=== PATIENT | male | born 1960 | race Caucasian/White ===

== ENCOUNTER → 2017-05-04 | Outpatient (CLI) | payer OTHER ==
--- NOTE | 2017-05-04 11:50 | PN ---
PROGRESS NOTE A 57-year-old male patient coming in for an annual followup regarding his obstructive sleep apnea. The patient has been diagnosed having severe JALIL with an AHI of 59 and the patient is currently on BiPAP at a pressure of 14/10 cm of water. He is doing well. He has gained only 4 pounds over the past 1 year. He is still using his BiPAP. He is benefitting from the treatment. He is waking up alert and refreshed. He needs to be a little bit more compliant. His 30-day complaint. His 30-day compliancy shows that he has used his BiPAP 26/30 days and his average BiPAP use was 6.1 hours per night. Leak factor is only 72 per minute, and he is using an Vibha View full-face mask. Tidal volumes of 580, AHI while on treatment is down to 3. He has no snoring while on the BiPAP treatment. No facial irritation. No headaches. No other complaints, otherwise. His sleep quality is improved. Also, the patient is being investigated at [facility] for a left inguinal hernia and he may ultimately need surgery for that. BP is 141/78, pulse 84, respirations 16, temperature 98.2, saturation 96% on room air. Weight is 298. Height is 5, 7, BMI is 46.6. General appearance is calm, comfortable, in no acute distress. HEAD: Atraumatic, normocephalic. NECK: Supple. There is no JVD. There is no goiter or neck masses. LUNGS: Diminished breath sounds; otherwise clear. HEART: Sounds are regular rate and rhythm. Normal S1, S2. No S3. No murmurs. ABDOMEN: Soft, nontender. No organomegaly. No direct tenderness, rebound or guarding. EXTREMITIES: No edema. No cyanosis or clubbing. IMPRESSION: 1. Symptomatic severe obstructive sleep apnea, apnea-hypopnea index of 59. The patient continues to receive successful BiPAP therapy at a pressure of 14/10. 2. Obesity, body mass index of 46. 3. Hypersomnia, recovered. 4. Inguinal hernia. PLAN: 1. Proceed with BiPAP therapy at the same level of pressure. 2. Renew supplies. 3. Encourage weight loss. 4. The patient is compliant. 5. No need for any further adjustments. See me back in a year's time in followup, earlier if needed. MMODL / IJN: [id number] /
== END | disposition home or self-care (01) ==
LOC: SLEEP 10:10
PROVIDERS: ATTEND Internal Medicine Critical Care Medicine
DX: G47.33 Obstructive sleep apnea (adult) (pediatric) (principal); E66.9 Obesity, unspecified; K40.90 Unilateral inguinal hernia, without obstruction or gangrene, not specified as recurrent; Z99.89 Dependence on other enabling machines and devices; Z68.42 Body mass index [BMI] 45.0-49.9, adult

== ENCOUNTER → 2018-05-31 | Outpatient (CLI) | payer OTHER ==
--- NOTE | 2018-05-31 15:16 | PN ---
PROGRESS NOTE A 58-year-old, male patient who is coming in for an annual check regarding his obstructive sleep apnea. He is doing extremely well. Over the past 1 year, the patient has gained around 16 pounds. Note that he has severe JALIL with an AHI of 59 and has been maintained on BiPAP pressure of 14/10 cm of water. He has been quite compliant with treatment. His compliancy data showed adequate use. The patient has been averaging around 6 hours of BiPAP use per night and his tidal volume is at 550, with an AHI being down to 2.5 while on treatment. His defect is 8 L/per minute, and the patient is using a small size Vibha View full-face mask. His BiPAP use over the past month indicated the patient is very compliant utilizing BiPAP use of more than 4 hours 75% of the time. No snoring while on his treatment. He is waking up refreshed and alert during the day. His current Whitharral score is at 8. PHYSICAL EXAMINATION: BP is 188/87, pulse 74, respirations 16, temperature 98.2, saturation 99% on room air. Height is 5, 7, weight is 314, BMI is 49.1. GENERAL APPEARANCE: Calm, comfortable. head is atraumatic, normocephalic. NECK: Supple. No JVD. No goiter or neck masses. Mallampati class IV. LUNGS: Clear to auscultation. HEART: Sounds regular. Normal S1, S2. No S3. No murmurs. ABDOMEN: Soft, nontender. No organomegaly. EXTREMITIES: No edema. No cyanosis or clubbing. NEUROLOGIC: Alert and oriented x3. No focal neurological deficits. PSYCHIATRIC: A negative for anxiety or depression. IMPRESSION: 1. Severe obstructive sleep apnea with an AHI of 59 currently on a BiPAP with a pressure of 14/10. Treatment continues to be successful despite his underlying weight gain. 2. Obesity with a current body weight is going up to the. Chem 14 with a BMI of 49.1. Despite waking the patient. Treatment continues to be successful. 3. Hypertension was poorly controlled blood pressure. 4. Hypersomnia, improved Whitharral score is down to 8. 5. Inguinal hernia. PLAN: 1. Continue BiPAP therapy at the same level. 2. Encourage weight loss. 3. Renew BiPAP supplies. 4. Treatment is successful. 5. Encourage weight loss. See me back in a year's time in follow up, earlier if needed. MMODL / IJN: [id number] /
== END ==
LOC: SLEEP 13:14
PROVIDERS: ATTEND Internal Medicine Critical Care Medicine
DX: G47.33 Obstructive sleep apnea (adult) (pediatric) (principal); E66.9 Obesity, unspecified; I10 Essential (primary) hypertension; K40.90 Unilateral inguinal hernia, without obstruction or gangrene, not specified as recurrent; Z68.42 Body mass index [BMI] 45.0-49.9, adult; Z99.89 Dependence on other enabling machines and devices

== ENCOUNTER → 2019-06-20 | Outpatient (CLI) | payer OTHER ==
--- NOTE | 2019-06-20 20:44 | PN ---
PROGRESS NOTE This is a 59-year-old male patient coming in for a compliancy check. This is an annual check for this patient. The patient is on a BiPAP pressure of 14/10 cm of water. Since his last evaluation, the patient has maintained his own body weight. His weight is down to 215. He is utilizing his BiPAP every night. His BiPAP use for more than 4 hours is above 70%. His machine use over the past 30 days has been 29/30. Average number of hours is 5 hours per night with a leak of 2 L/minute. Tidal volume is at 540. Apnea-hypopnea index while on treatment is down to 4.2. No snoring while on treatment. No major hypersomnia or sleepiness during the day. Pulse ox 96% on room air. No chest pain, shortness of breath, heartburn overnight. REVIEW OF SYSTEMS: Fourteen-point review of systems was done. Positive findings were all mentioned above in the history of present illness. PHYSICAL EXAMINATION: VITAL SIGNS: BP is 135/70, pulse 73, respirations 16, temperature 97.6, saturation 96% on room air. Leicester score is 9. BMI is 49.3, weight is 215. GENERAL APPEARANCE: Calm, comfortable. HEAD: Atraumatic, normocephalic. NECK: Supple. No JVD. No goiter or neck masses. Mallampati class IV. LUNGS: Clear to auscultation. HEART: Heart sounds are regular rate and rhythm. Normal S1, S2. No S3, S4. No murmurs. ABDOMEN: Soft, nontender. No organomegaly. EXTREMITIES: No edema. No cyanosis or clubbing. NEUROLOGIC: Awake and alert. There is no focal neurological deficit. IMPRESSION: 1. Obstructive sleep apnea, severe, with an apnea/hypopnea index of 59, currently on a BiPAP at a pressure of 14/10. Treatment continues to be successful with adequate compliancy. 2. Obesity with a body mass index of 49.3. Weight is stable. 3. Hypertension. 4. Hypersomnia, improved. PLAN: 1. Continue BiPAP therapy at the same level of pressure. 2. Renew the supplies. 3. Encourage weight loss. 4. Implement good sleep hygiene measures. 5. See me back in a year's time in followup. MMODL / IJN: [id number] /
== END | disposition home or self-care (01) ==
LOC: SLEEP 13:16
PROVIDERS: ATTEND Internal Medicine Critical Care Medicine
DX: G47.33 Obstructive sleep apnea (adult) (pediatric) (principal); E66.9 Obesity, unspecified; Z68.42 Body mass index [BMI] 45.0-49.9, adult; I10 Essential (primary) hypertension; Z99.89 Dependence on other enabling machines and devices

== ENCOUNTER → 2022-01-19 | Outpatient (CLI) | payer OTHER ==
--- NOTE | 2022-01-19 21:30 | MR ---
EXAMINATION TYPE: MR knee RT wo con DATE OF EXAM: 01/19/2022 COMPARISON: Outside right knee x-ray 20 days ago. HISTORY: Right knee pain for 3.5 years. TECHNIQUE: Multiplanar, multisequence imaging of the right knee is performed without IV contrast. FINDINGS: MEDIAL MENISCUS: Marked increased signal throughout the medial meniscus greater involvement in the po sterior horn. No definitive extension to articular surface. LATERAL MENISCUS: Anterior and posterior horns are intact without tear. CRUCIATE LIGAMENTS: The anterior and posterior cruciate ligaments are intact and unremarkable. COLLATERAL LIGAMENTS: The medial collateral ligament and lateral collateral ligament complex are inta ct and unremarkable. EXTENSOR MECHANISM: Visualized quadriceps and patellar tendons are intact. EFFUSION: Small size suprapatellar joint effusion. POPLITEAL CYST: No popliteal/lubin cyst. TRICOMPARTMENT SPACES: Mild to moderate tricompartment joint space loss. Mild tricompartment spurring . CARTILAGE: Some chondromalacia patella with cartilaginous loss along posterior patellar pole sagittal image 18 for reference. Fissuring and cartilaginous loss distal medial femoral condyle. BONE MARROW SIGNAL: Areas of heterogeneous diminished T1 and increased T2 alignment posterior patella r pole at site of cartilaginous loss. OTHER: No additional significant abnormality is appreciated. IMPRESSION: 1. Mild to moderate tricompartment degenerative changes as detailed above. 2. At least intrasubstance tear throughout the anterior and posterior horns of the medial meniscus, n o full-thickness meniscal tear. 3. Small suprapatellar joint effusion.
== END | disposition home or self-care (01) ==
LOC: RADMRIMAIN 18:45
PROVIDERS: ATTEND Orthopaedic Surgery
DX: M17.11 Unilateral primary osteoarthritis, right knee (principal); M23.221 Derangement of posterior horn of medial meniscus due to old tear or injury, right knee

== ENCOUNTER → 2022-03-02 | Outpatient (CLI) | payer OTHER ==
[2022-03-02 15:35] LABS: Basophils # (A) 0.03 X 10*3/uL (0.00-0.10); Basophils % (A) 0.5 %; Eosinophils # (A) 0.17 X 10*3/uL (0.04-0.35); Eosinophils % (A) 2.6 %; HCT 49.4 % (39.6-50.0); HGB 16.3 g/dL (13.0-17.0); Immature Grans, Automated 0.5 %; Lymphocytes # (A) 1.52 X 10*3/uL (0.90-5.00); MCH 29.5 pg (27.0-32.0); MCV 89.5 fL (80.0-97.0); Mean Platelet Volume 10.5 fL (9.5-12.2); Monocytes # (A) 0.51 X 10*3/uL (0.20-1.00); Monocytes % (A) 7.7 %; NRBC Per 100 WBC 0 /100 WBCS (0.0-0.0); Neutrophils # (A) 4.35 X 10*3/uL (1.80-7.70); Neutrophils % (A) 65.7 %; Platelet Count 269 X 10*3/uL (140-440); RBC 5.52 X 10*6/uL (4.40-5.60); RDW 13.2 % (11.5-14.5); WBC 6.61 X 10*3/uL (4.50-10.00)
[2022-03-02 16:26] LABS: Anion Gap 13.4 mmol/L (10.00-18.00); Carbon Dioxide 20.6 mmol/L (20.0-27.5); Potassium 4.7 mmol/L (3.5-5.5)
== END | disposition home or self-care (01) ==
LOC: LABPAT 09:13
PROVIDERS: ATTEND Orthopaedic Surgery
DX: Z01.818 Encounter for other preprocedural examination (principal)
CPT/HCPCS: 80051; 85025; 93005

== ENCOUNTER 2022-03-12 11:37 | Day surgery (SDC) | payer OTHER ==
--- NOTE | 2022-03-12 07:41 | HP ---
HISTORY AND PHYSICAL DATE OF SURGERY: 03/12/2022. HISTORY OF PRESENT ILLNESS: Thomas Macias is a 62-year-old gentleman seen with progressive knee pain. We discussed options for treatment. He elected to proceed with knee arthroscopy. Consent was obtained. PAST MEDICAL HISTORY: Hypertension. PAST SURGICAL HISTORY: Herniorrhaphy. DAILY MEDICATIONS: Lisinopril. ALLERGIES: None. SOCIAL HISTORY: Denies tobacco use. PHYSICAL EVALUATION: Range of motion 0 to 125 degrees. Tenderness along the medial joint line. Positive medial Vinnie's. Ligaments stable. Hip rotation without pain. Distal neurovascular exam is intact. RADIOGRAPHS: knee radiographs revealed mild osteoarthritis MRI knee revealed medial meniscal tear and effusion. IMPRESSION: 1. Internal derangement of knee with medial meniscal tear. 2. Hypertension. PLAN: knee arthroscopy with partial medial meniscectomy and debridement. MMODL / IJN: [id number] /
[~2022-03-12 11:37] MED LIST: ceFAZolin 3 GM in SODIUM CHLORIDE 0.9% 100 ML IVPB PRN
[2022-03-12] MEDS ORDERED: LACTATED RINGERS 1,000 ML IV ONE (12:10)
[2022-03-12] MEDS ORDERED: ONDANSETRON 4 MG/2 ML VIAL ONE (12:16)
[2022-03-12] MEDS ORDERED: DEXAMETHASONE SOD PHOSPHATE 4 MG/ML 1 ML VIAL IVP ONE (12:33)
[2022-03-12] MEDS ORDERED: ONDANSETRON 4 MG/2 ML VIAL IVP ONE (12:33)
[2022-03-12] MEDS ORDERED: BUPIVACAINE (PF) 0.25% 30 ML VIAL SQ ONE ×2 (14:10→14:47)
[2022-03-12] MEDS ORDERED: MIDAZOLAM 2 MG/2 ML VIAL ONE (14:15)
[2022-03-12] MEDS ORDERED: PROPOFOL 10 MG/ML 20 ML VIAL IV ONE (14:15)
[2022-03-12] MEDS ORDERED: fentaNYL (PF) 50 MCG/ML 2 ML AMP ONE (14:15)
[2022-03-12 15:00] VITALS: TEMP 96.9
--- NOTE | 2022-03-12 15:03 | P.OP ---
Date of Procedure: 03/12/22 Preoperative Diagnosis: Internal derangement right knee Postoperative Diagnosis: 1. Tear medial and lateral meniscus right knee 2. Reactive synovitis medial, lateral and suprapatellar compartments right knee Procedure(s) Performed: 1. Arthroscopic partial medial and lateral meniscectomy right knee 2. Arthroscopic partial synovectomy medial, lateral and suprapatellar compartments right knee Anesthesia: local, spinal Surgeon: Frantz Thompson Estimated Blood Loss (ml): 7 Pathology: none sent Condition: stable Disposition: PACU Indications for Procedure: 62-year-old patient seen with progressive right knee pain. After having treatment options discussed, he elected to proceed with arthroscopy. Operative Findings: See description of procedure Description of Procedure: Patient was taken to the operative suite. Patient underwent a spinal anesthetic by the department of anesthesia. Patient was given preoperative antibiotics. The right lower extremity was placed in a well-padded arthroscopic leg jackson. The right leg was prepped and draped in the normal sterile orthopedic fashion. A lateral parapatellar and suprapatellar incision was made. Trochars were inserted. Arthroscopy was initiated. Suprapatellar pouch revealed diffuse thick reactive synovitis. The patellofemoral joint appeared to articulate congruently. There there was grade 1/2 chondromalacia of the patella without significant osteochondral tears. The scope was guided into the medial gutter. No loose bodies or plica were identified. The scope was then guided into the medial compartment. A medial parapatellar incision was made. Trocar inserted followed by probe. There was a complex tear involving anterior horn medial meniscus and a small radial tear involving the posterior horn of the medial meniscus. There were grade 1/2 chondromalacia changes involving the medial compartment. There was some reactive synovitis anteriorly. I performed a partial medial meniscectomy getting down to stable meniscal tissue. I performed a partial synovectomy decompressing the reactive synovitis. The residual meniscus was stable. There was good decompression of the synovitis. Scope and probe were then guided into the intercondylar notch. Cruciates were identified, probed and found to be stable. The scope and probe were then guided into lateral compartment. There was a radial tear midbody lateral meniscus. There were grade 1 chondromalacia changes lateral compartment. There was some reactive synovitis anteriorly. I performed a partial lateral meniscectomy getting down to stable meniscal tissue. I performed a partial synovectomy decompressing the reactive synovitis. The shaver was now removed. The residual meniscus was stable. The scope was in guided back into the suprapatellar compartment. I introduced a motorized shaver into the suprapatellar compartment. I debrided some piecemeal from its of meniscus that I encountered. I performed a partial synovectomy. Shaver was removed. There was good decompression of the synovitis. I took one more look around the entire knee, no residual debris. Instruments were now removed from the joint. The joint was infiltrated with .25% Marcaine. Steri-Strips were applied to the portal sites. Sterile dressings were applied. The patient was placed into a SOFIA hose. No tourniquet was utilized. The patient was awakened, transferred to a bed and taken to recovery stable satisfactory condition.
[2022-03-12 15:44] VITALS: RESP 15
[2022-03-12 15:53] VITALS: BP 133/73; PULSE 72
== END 2022-03-12 16:45 | disposition home or self-care (01) ==
LOC: OR 11:37
PROVIDERS: ATTEND Orthopaedic Surgery
DX: S83.281A Other tear of lateral meniscus, current injury, right knee, initial encounter (principal); S83.241A Other tear of medial meniscus, current injury, right knee, initial encounter; I10 Essential (primary) hypertension; M65.88 Other synovitis and tenosynovitis, other site; G47.33 Obstructive sleep apnea (adult) (pediatric)
CPT/HCPCS: 29880; J2250; J1100; J0690; J2405; J3010; J2704

== ENCOUNTER → 2023-02-12 | Outpatient (CLI) | payer OTHER ==
--- NOTE | 2023-02-12 18:21 | MR ---
EXAMINATION TYPE: MR knee LT wo con DATE OF EXAM: 02/12/2023 COMPARISON: No radiographic correlation available HISTORY: 63-year-old male M25.562, Left knee pain x 1 year. TECHNIQUE: Multiplanar, multisequence imaging of the left knee is performed without IV contrast. FINDINGS: The ACL and ACL are intact. The MCL is intact. Mild inhomogeneous signal upper third aspect of the LCL proper. There is also increased signal in the popliteus tendon with possible split tear on coronal images. There appears to be a multilocular ganglion cysts along the deep aspect of the popliteal muscle but c rossing along the inferior aspect of the tibiofibular joint into the anterior peroneal compartment. T his measures up to 4.1 cm wide by 1.0 cm thick. Inferior extent not included in the [id number]. Prominent degenerative signal posterior horn of the medial meniscus without discrete tear. There is m oderate irregular cartilage loss throughout the mid aspect of the medial compartment. There is a 6 mm loose body posteriorly. Some degenerative signal within the body of the lateral meniscus without discrete tear. Overall later al compartment articular cartilage volume is maintained. There is severe full-thickness cartilage loss along medial facets of the patellofemoral compartment w ith marginal spurring and slight medial patellar translation. Extensor mechanism is intact. Prepatellar soft tissue swelling. Small knee joint effusion. Trace Cardoza's cyst. Normal popliteal artery anatomy in muscle bulk. No suspicious bone marrow replacement. IMPRESSION: 1. Grade 1 sprain of the LCL proper. There is also popliteus tendinosis with possible split tear of t he popliteus tendon. A multilocular ganglion cyst extends along the inferior aspect of the popliteus muscle and anteriorly into the peroneal compartment measuring up to 4.1 x 1.0 cm and extending down b eyond the [id number]. 2. Degenerative signal posterior horn medial meniscus and within the body of the lateral meniscus. No discrete meniscal tear. 3. Moderate irregular cartilage loss mid aspect of the medial compartment and severe osteoarthritic c hange along the medial facet of the patellofemoral compartment. 4. Small joint effusion and trace Cardoza's cyst.
== END | disposition home or self-care (01) ==
LOC: RADMRIMAIN 13:00
PROVIDERS: ATTEND Orthopaedic Surgery
DX: M17.12 Unilateral primary osteoarthritis, left knee (principal); M67.462 Ganglion, left knee